=== PATIENT | female | born 1945 | race Hispanic/Latino ===

== ENCOUNTER 2016-08-09 12:51 | Inpatient (IN) | payer MEDICARE, OTHER ==
[2016-08-09 12:58] VITALS: BMI 23.6
--- NOTE | 2016-08-09 13:29 | ED PDOC ---
Arrival/HPI - General Chief Complaint: Shortness Of Breath Time Seen by Provider: 08/09/16 13:09 Historian: Patient - History of Present Illness Narrative History of Present Illness (Text): 08/09/16 13:28 71 year old female recently diagnosed with atrial fibrillation 2 days ago, started on Eliquis by PMD, presents to the emergency department with 1 week duration of worsening generalized weakness, lack of appetite and dyspnea on exertion. Denies chest pain. No other complaints at this time. Time/Duration: 1 week Symptom Onset: Gradual Symptom Course: Worsening Modifying Factors (Text): None Associated Symptoms (Text): None Past Medical History - Provider Review Nursing Documentation Reviewed: Yes - Cardiac Hx Cardiac Disorders: Yes Hx Cardiac Arrhythmia: Yes Hx Hypertension: Yes - Neurological Hx Neurological Disorder: No - HEENT Hx HEENT Disorder: No - Renal Hx Renal Disorder: No - Endocrine/Metabolic Hx Endocrine Disorders: Yes Hx Diabetes Mellitus Type 2: Yes - Hematological/Oncological Hx Blood Disorders: No - Integumentary Hx Dermatological Disorder: No - Musculoskeletal/Rheumatological Hx Musculoskeletal Disorders: Yes Hx Rheumatoid Arthritis: Yes - Gastrointestinal Hx Gastrointestinal Disorders: No - Genitourinary/Gynecological Hx Genitourinary Disorders: No - Psychiatric Hx Psychophysiologic Disorder: No Hx Substance Use: No Family/Social History - Physician Review Nursing Documentation Reviewed: Yes Family/Social History: Unknown Family HX Smoking Status: Never Smoked Hx Alcohol Use: No Hx Substance Use: No Allergies/Home Meds Allergies/Adverse Reactions: Allergies No Known Allergies Allergy (Verified 08/09/16 12:57) Home Medications: Home Meds Medication Instructions Recorded Confirmed Apixaban [Eliquis] 08/09/16 Furosemide [Lasix] 08/09/16 Metoprolol Tartrate [Lopressor] 08/09/16 [id number] [Cardizem] 08/09/16 Review of Systems - Physician Review All systems were reviewed & negative as marked: Yes Physical Exam - Physical Exam Narrative Physical Exam (Text): - Review of Systems Constitutional: Generalized weakness. absent: Fatigue, Weight Change, Fevers Eyes: Normal ENT: Normal Respiratory: Dyspnea on exertion absent: SOB, Cough, Sputum Cardiovascular: Normal absent: Chest pain, Palpitations, Syncope Gastrointestinal: Lack of appetite absent: Abdominal pain, Diarrhea, Nausea, Vomiting Genitourinary: Normal. absent: Dysuria, Frequency, Hematuria Musculoskeletal: Normal. absent: Arthralgias, Back Pain, Neck Pain Skin: Normal Neurological: Normal absent: Focal Weakness Endocrine: Normal Hemo/Lymphatic: Normal Psychiatric: Normal - Physical exam Patient appears age appropriate, speaking full sentences without difficulty - Systems Exam Head: Present: Atraumatic, Normocephalic Pupils: Present: PERRL Extraocular Muscles: Present: EOMI Conjunctiva: Present: Normal Mouth: Present: Moist Mucous Membranes Neck: Present: Normal Range of Motion. No: MIDLINE TENDERNESS, Paraspinal Tenderness Respiratory/Chest: Present: Clear to Auscultation, Good Air Exchange. No: Respiratory Distress, Accessory Muscle Use, Tachypneic Cardiovascular: Present: Irregularly irregular rhythm, Normal S1, S2, Peripheral Pulses Present. No: Murmurs Abdomen: Present: Normal Bowel Sounds, No: Tenderness, Peritoneal Signs, Rebound, Guarding, Distention Back: Present: Normal Inspection. No: Midline Tenderness, Paraspinal Tenderness Upper Extremity: Present: Normal Inspection. No: Cyanosis, Edema Lower Extremity: Present: Bilateral lower extremity swelling with +2 pitting edema Neurological: Present: GCS=15, Speech Normal, cranial nerves II through XII fully intact with no cerebellar abnormality, neuro-sensory fully intact. No focal neurological deficits. Skin: Present: Warm, Dry, Normal Color. No: Rashes Lymphatic: Present: OX3, NI, NC Psychiatric: Present: Alert, Oriented x 3, Normal Insight, Normal Concentration Vital Signs Reviewed: Yes Vital Signs Temp Pulse Resp BP Pulse Ox 08/09/16 16:05 105/57 L 08/09/16 15:52 97.2 F L 98 H 16 105/57 L 95 08/09/16 13:12 18 94 L 08/09/16 13:06 97.7 F 96 H 18 105/48 L 94 L Temperature: Afebrile Blood Pressure: Normal Pulse: Bradycardic Respiratory Rate: Normal Appearance: Positive for: Well-Appearing, Non-Toxic, Comfortable Pain Distress: None Mental Status: Positive for: Alert and Oriented X 3 Finger Stick Blood Glucose: 131 Medical Decision Making ED Course and Treatment: Impression: 71 year old female recently diagnosed with atrial fibrillation 2 days ago, started on Eliquis by PMD, presents to the emergency department with 1 week duration of worsening generalized weakness, lack of appetite and dyspnea on exertion. On physical exam, patient has irregularly irregular rhythm and bilateral lower extremity swelling with +2 pitting edema. Differential Diagnosis include but are not limited to: Pneumonia versus CHF Plan: -- EKG, Chest X-ray -- Aspirin -- Labs -- Reassess and disposition Progress Notes: EKG shows atrial fibrillation at [address]-segment depressions in lateral leads, no ST segment elevations. with no prior for comparison. Interpreted by me. 08/09/16 14:53 Chest x-ray shows cardiomegaly with bilateral pleural effusions, no pneumothorax. Vascular congestion present. Interpreted by me. CAT scan of the chest ordered for better evaluation. Antibiotics and Lasix ordered CMP pending 08/09/16 16:15 PROCEDURE: CT Chest without contrast HISTORY: PNA/effusions FINDINGS: LUNGS: Bibasilar consolidation adjacent to pleural effusions lesions. There is also consolidation in the right middle lobe and lingular segment of the left upper lobe with air bronchograms MEDIASTINUM: Unremarkable thoracic aorta. No aneurysm. Coronary artery calcifications. Mild cardiomegaly Main pulmonary artery unremarkable. No vascular congestion. No lymphadenopathy. PLEURA: Moderate size pleural effusions BONES: No fracture. No destructive lesion. UPPER ABDOMEN: Grossly unremarkable. OTHER FINDINGS: None. IMPRESSION: Bilateral pleural effusions with bibasilar consolidation. Infiltrates are also seen in the right middle lobe and lingular segment of the left upper lobe elevated troponin noted, pt denies any cp will order asa lasix ordered will hold ntg due to pt's BP PMD called, awaiting callback 08/09/16 16:[address] Sean Cuevas, accepted to his service to tele asked to consult Dr. Peterson for cardiology, paged pt in no resp distress at this time, denies cp/sob/casillas, aware of and agrees with plan - Lab Interpretations Lab Results: 08/09/16 13:35 08/09/16 15:25 Lab Results 08/09/16 15:25: Sodium 133, Potassium 4.4, Chloride 102, Carbon Dioxide 18 L, Anion Gap 17, BUN 61 H, Creatinine 2.0 H, Est GFR ( Amer) 30, Est GFR ( Non-Af Amer) 25, Random Glucose 125 H, Calcium 8.8, Total Bilirubin 2.3 H, AST 60 H, ALT 88 H, Alkaline Phosphatase 98, Lactate Dehydrogenase 1093 H, Total Creatine Kinase 47, Troponin I 0.18 H*, NT-Pro-B Natriuret Pep 43332 H, Total Protein 6.0, Albumin 3.4, Globulin 2.6, Albumin/Globulin Ratio 1.3 08/09/16 13:35: WBC 16.0 H, RBC 4.06, Hgb 13.4, Hct 41.5, MCV 102.2, MCH 33.0, MCHC 32.3, RDW 16.2 H, Plt Count 674 H, MPV 11.3 H, Gran % 92.4 H, Lymph % (Auto ) 2.2 L, Sevier % (Auto) 5.1, Eos % (Auto) 0.1 L, Baso % (Auto) 0.2, Gran # 14.79 H, Lymph # 0.4 L, Sevier # 0.8 H, Eos # 0.0, Baso # 0.04, PT 17.1 H, INR 1.58 H, APTT 32.9 H 08/09/16 13:05: POC Glucose (mg/dL) 131 H - RAD Interpretation Radiology Orders: 08/09/16 13:11 CHEST PORTABLE [RAD] Stat 08/09/16 14:45 CHEST W/O CONTRAST [CT] Stat - EKG Interpretation Interpreted by ED Physician: Yes Type: 12 lead EKG - Medication Orders Current Medication Orders: Discontinued Medications Aspirin (Aspirin Chewable) 162 mg PO STAT STA Stop: 08/09/16 13:11 Last Admin: 08/09/16 13:25 Dose: 162 MG Furosemide (Lasix) 40 mg IVP STAT STA Stop: 08/09/16 14:42 Last Admin: 08/09/16 16:05 Dose: 20 MG Comments: As per Dr. Call, only administer 20mg because of blood pressure. MAR Blood Pressure Document 08/09/16 16:05 ALA (Rec: 08/09/16 16:05 ALA [id number]) Blood Pressure Blood Pressure (100/60-150/90 mm Hg) 105/57 IVP Administration Document 08/09/16 16:05 ALA (Rec: 08/09/16 16:05 ALA [id number]) Charges for Administration # of IVP Administrations 1 Azithromycin (Zithromax 500mg In Ns) 250 mls @ 167 mls/hr IVPB STAT STA PRN Reason: Protocol Stop: 08/09/16 16:10 Ceftriaxone Sodium (Rocephin 1 Gram Ivpb) 100 mls @ 200 mls/hr IV STAT STA PRN Reason: Protocol Stop: 08/09/16 15:10 Last Admin: 08/09/16 15:54 Dose: 200 MLS/HR eMAR Start Stop Document 08/09/16 15:54 ALA (Rec: 08/09/16 15:54 ALA [id number]) Intravenous Solution Start Date 08/09/16 Start Time 15:54 End Date 08/09/16 End time 16:24 Total Infusion Time 30 - Scribe Statement The provider has reviewed the documentation as recorded by the Yung Cervantes Provider Scribe Attestation: All medical record entries made by the Ottoibe were at my direction and personally dictated by me. I have reviewed the chart and agree that the record accurately reflects my personal performance of the history, physical exam, medical decision making, and the department course for this patient. I have also personally directed, reviewed, and agree with the discharge instructions and disposition. Disposition/Present on Arrival - Present on Arrival Any Indicators Present on Arrival: No History of DVT/PE: No History of Uncontrolled Diabetes: No Urinary Catheter: No History of Decub. Ulcer: No History Surgical Site Infection Following: None - Disposition Have Diagnosis and Disposition been Completed?: Yes Diagnosis: CHF (congestive heart failure), Pneumonia Disposition: HOSPITALIZED Disposition Time: 16:25 Patient Plan: Admission Condition: FAIR Discharge Instructions (ExitCare): Heart Failure (ED)
--- NOTE | 2016-08-09 13:38 | RAD ---
HISTORY: cough COMPARISON: No prior. FINDINGS: LUNGS: Linear atelectasis at both lung bases. PLEURA: Moderate bilateral pleural effusion. CARDIOVASCULAR: Congestive change. OSSEOUS STRUCTURES: No significant abnormalities. VISUALIZED UPPER ABDOMEN: Normal. OTHER FINDINGS: None. IMPRESSION: Moderate bilateral pleural effusion with congestive change. Possible congestive heart failure. No definite infiltrate. Cannot rule out infiltrate at lung bases due to superimposed moderate pleural effusions.
[2016-08-09 13:41] LABS: ADD MANUAL DIFF? NO
[2016-08-09 13:54] LABS: BASO # 0.04 K/mm3 (0.0-2.0); BASO % 0.2 % (0.0-3.0); EOS % 0.1 % (1.5-5.0); GRAN # 14.79 (1.4-6.5); GRAN % 92.4 % (50.0-68.0); HEMATOCRIT 41.5 % (36.0-48.0); LYMPH # 0.4 (1.2-3.4); LYMPH % 2.2 % (22.0-35.0); MEAN CELL VOLUME 102.2 fL (80.0-105.0); MEAN CORPUSCULAR HGB CONC 32.3 g/dl (31.0-37.0); MEAN PLATELET VOLUME 11.3 fl (7.0-11.0); MONO # 0.8 (0.1-0.6); MONO % 5.1 % (1.0-6.0); PLATELET COUNT 674 10^3/uL (120.0-450.0); RED CELL DISTRIBUTION WIDTH 16.2 % (11.5-14.5)
[2016-08-09 14:01] LABS: INR 1.58 (0.93-1.08); PARTIAL THROMBOPLASTIN TIME 32.9 Seconds (23.7-30.8)
[2016-08-09] MEDS ORDERED: cefTRIAXone 1 gm 100 ML IV STA (14:41)
[2016-08-09] MEDS ORDERED: Azithromycin 500MG/NS 250ml 250 ML IVPB STA (14:41)
--- NOTE | 2016-08-09 15:34 | CT ---
PROCEDURE: CT Chest without contrast HISTORY: PNA/effusions COMPARISON: None. TECHNIQUE: Contiguous axial images were obtained through the chest without intravenous contrast enhancement. Sagittal and coronal reconstructions were performed. Radiation dose (DLP): 343 mGy-cm. FINDINGS: LUNGS: Bibasilar consolidation adjacent to pleural effusions lesions. There is also consolidation in the right middle lobe and lingular segment of the left upper lobe with air bronchograms MEDIASTINUM: Unremarkable thoracic aorta. No aneurysm. Coronary artery calcifications. Mild cardiomegaly Main pulmonary artery unremarkable. No vascular congestion. No lymphadenopathy. PLEURA: Moderate size pleural effusions BONES: No fracture. No destructive lesion. UPPER ABDOMEN: Grossly unremarkable. OTHER FINDINGS: None. IMPRESSION: Bilateral pleural effusions with bibasilar consolidation. Infiltrates are also seen in the right middle lobe and lingular segment of the left upper lobe
[2016-08-09 15:45] LABS: ALB/GLOB RATIO 1.3 (1.1-1.8); BILIRUBIN,TOTAL 2.3 mg/dL (0.2-1.3); CALCIUM 8.8 mg/dL (8.4-10.5); POTASSIUM 4.4 mmol/L (3.6-5.0)
[2016-08-09 16:03] LABS: TROPONIN I 0.18 ng/mL
--- NOTE | 2016-08-09 18:23 | CARD ---
APPROVED REPORT EKG Measurement Heart [id number] <Conclusion> Atrial fibrillation Right bundle branch block Anteroseptal infarct, age undetermined T wave abnormality, consider inferolateral ischemia or digitalis effect Abnormal ECG
[2016-08-09] MEDS: Insulin Reg-LOW-Coverage SC SCH (21:31)
[2016-08-09] MEDS ORDERED: Influenza Vaccine 45 MCG/0.5 ml IM ONE (22:04)
[2016-08-09] MEDS ORDERED: Pneumococcal 23-Valent Vaccine IM ONE (22:04)
[2016-08-10 06:42] LABS: HEMATOCRIT 37.7 % (36.0-48.0); MEAN CELL VOLUME 100.5 fL (80.0-105.0); MEAN CORPUSCULAR HEMOGLOBIN 32.5 pg (25.0-35.0); MEAN CORPUSCULAR HGB CONC 32.4 g/dl (31.0-37.0); MEAN PLATELET VOLUME 11.2 fl (7.0-11.0); PLATELET COUNT 533 10^3/uL (120.0-450.0); RED CELL DISTRIBUTION WIDTH 16.2 % (11.5-14.5); WHITE BLOOD COUNT 10.9 10^3/ul (4.5-11.0)
[2016-08-10 06:48] LABS: ADD MANUAL DIFF? YES
[2016-08-10 06:57] LABS: CALCIUM 8.5 mg/dL (8.4-10.5); POTASSIUM 4.1 mmol/L (3.6-5.0)
[2016-08-10] MEDS: Potassium Chloride 10 mEq ER Tab PO SCH (08:09)
[2016-08-10] MEDS: Insulin Reg-LOW-Coverage SC SCH ×4 (08:10→22:34)
[2016-08-10 09:38] LABS: HYPOCHROMIA SLIGHT; LARGE PLATELETS PRESENT; NEUTROPHIL 90 % (50.0-70.0); PLATELET ESTIMATE HIGH (NORMAL); POIKILOCYTOSIS 2+
[2016-08-10 09:42] LABS: ANISOCYTOSIS 2+; OVALOCYTES 1+; TEAR DROP CELLS SLIGHT
[2016-08-10] MEDS: diltiaZEM 240 mg/24 Hours CD Cap PO SCH ×2 (09:42→18:33)
[2016-08-10 09:43] LABS: BURR CELLS 1+
[2016-08-10] MEDS: cefTRIAXone 1 gm 100 ML IV SCH (09:44)
[2016-08-10] MEDS: Heparin25000 units/250ml 1/2NS 250 ML IV PRN (09:57)
--- NOTE | 2016-08-10 10:22 | CON ---
DATE: 08/10/2016 REASON FOR CONSULTATION: Atrial fibrillation, rapid ventricular response, pleural effusions, rule out pneumonia. HISTORY OF PRESENT ILLNESS: This is a 71-year-old woman who was found to have atrial fibrillation a couple days prior to admission. She was seen in the office by Dr. Cordero. She complained of shortness of breath, weakness and not feeling well. Her symptoms worsened and she came to the Emergency Room yesterday and was admitted to telemetry where she is resting in bed today with atrial fibrillation with a moderate to rapid ventricular response. Her chest x- ray showed bilateral pleural effusions and a CT scan of the chest was abnormal showing bilateral effusions and infiltrates. There is no prior history of cardiac disease. She denies chest pain, PND, syncope, presyncope, lightheadedness, dizziness, vertigo, abdominal pain, nausea , vomiting, diarrhea, constipation, melena, fever, chills, rigors, sweats, hemoptysis. PAST MEDICAL HISTORY: Notable for hypertension, diabetes and rheumatoid arthritis. There is no history of rheumatic fever, myocardial infarction, angina, congestive heart failure, stroke, TIA or gout. MEDICATIONS: At the time of admission included Cardizem, Eliquis, Lasix, Lopressor, weekly methotrexate. ALLERGIES: There are no known allergies. She is intolerent of metoprolol. SOCIAL HISTORY: She lives at home. She does not smoke cigarettes. She does not drink alcohol. FAMILY HISTORY: Noncontributory. REVIEW OF SYSTEMS: Ten point review of systems otherwise unremarkable except as noted above. PHYSICAL EXAMINATION: GENERAL: She is a well-developed woman sitting in bed on telemetry in no acute distress. VITAL SIGNS: Notable for atrial fibrillation at 100 beats per minute. She is afebrile. Blood pressure 116/60, respirations 17-19, O2 sat 94%-99% on room air. HEENT: Reveals no neck vein distention, thyromegaly, or carotid bruits. Mucous membranes are moist. Conjunctivae are pink. NECK: Supple. CHEST: Lung millard diminished breath sounds at the bases. HEART: Revealed an irregular rhythm, normal first and second heart sounds. ABDOMEN: Soft, bowel sounds present. No mass, organomegaly, tenderness, rebound, guarding, CVA tenderness or palpable abdominal aortic aneurysm. EXTREMITIES: Revealed no cyanosis, clubbing, or edema. NEUROLOGIC: She is awake, alert and oriented. SKIN: Warm and dry. No rash or cellulitis. PSYCHIATRIC: Normal as to mood and affect. LABORATORY AND IMAGING: EKG demonstrates atrial fibrillation, rapid ventricular response, right bundle branch block, ST-T wave changes. Chest x- ray reveals moderate bilateral pleural effusion with congestive changes. No definite infiltrate. A CT scan of the chest reveals bilateral pleural effusions with bibasilar consolidation. Infiltrates are seen in the right middle lobe and lingular segment of the left upper lobe. White count 16,000, repeat 10,900, hemoglobin and hematocrit are unremarkable. Platelet count is elevated at 533,000. PT 17.1, INR 1.58. PTT 32.9. Electrolytes notable for BUN of 65, creatinine is 2.0, repeat 2.1. LFTs are elevated. CK is 47, troponin is 0.18 and 0.20. BNP is 28,500. IMPRESSION: The patient is a 71-year-old woman with a history of rheumatoid arthritis, found to have atrial fibrillation at the time of increasing shortness of breath and weakness for several days to a week prior to admission. She has bilateral pleural effusions, renal insufficiency with a mild troponin elevation and BNP of 28,500. PLAN: At this time, she is on telemetry. An echocardiogram as ordered. She is getting p.o. diltiazem. I will add sotalol. I will check a TSH and lipid panel. We will trend her troponins. She got aspirin. She is on Eliquis. Given renal insufficiency I will switch this to IV heparin for now. She is getting IV Lasix and Rocephin. She is getting azithromycin. We will monitor I' s and O's. We will check stool for occult blood. Once stabilized, a nuclear stress test will be recommended. She should have a pulmonary evaluation. She should be cultured. I will follow along with you and make additional recommendations based on her clinical course. Javy Peterson MD cc: [id number] TT: 08/10/2016 10:21:50 Confirmation # [id number] Dictation # [id number] eriberto SANTILLAN
--- NOTE | 2016-08-10 10:23 | HP ---
CHIEF COMPLAINT: Leg edema, shortness of breath, palpitations, irregular heartbeat. HISTORY OF PRESENT ILLNESS: This is a 71-year-old woman I have known for many years with a history of hypertension, diabetes and severe rheumatoid arthritis, who came to the office on Saturday, 2 days ago. For the past 2 weeks, the patient has been noticing worsening shortness of breath, feeling of a rapid heart rate. When she checked her blood pressure at home, blood pressure was normal to slightly elevated, but the home monitor reported an irregular heartbeat. She thought about contacting me, did some research on the Internet, had her read about congestive heart failure, was concerned about the swelling ankles, did not want to listen to the advice of her daughter suggesting she come to the office until Saturday when she finally gave in. She came in and told me she did not want to go to the hospital. On physical exam, she had edema up to the groin. She was not dyspneic on exertion or with speech. Her heart rate was irregular and tachycardic at 136 beats per minute and irregular. Her presenting symptom when she came to the office was of GI complaints, nausea and diarrhea. She did not forward the complaints about the shortness of breath or swollen ankles until examined and it was discovered on exam. We spoke about hospital stay. The patient was resistant and so she was started on Lasix 40 mg p.o. twice a day. Her usual dose of Cardizem was doubled from 120 to 240 mg. She was started on Eliquis. Metoprolol 25 mg b.i.d. was added and she was to follow up in the office in less than 48 hours and go to the Emergency Room if there was any worsening of her condition. Today , for her scheduled appointment, she did not come to the office, but rather on their way to the office, decided to go to the Emergency Room instead. And so, in the Emergency Room, she was evaluated, found to be in atrial fibrillation with a controlled rate at about 100. She was in failure with volume overload. Bilateral pleural effusions and leg edema were noted. The leg edema was actually better than noted a few days ago and the new finding was of cardiomegaly on chest x-ray and CT scan. CT scan also raised the question of an infiltrate, but there were no infectious symptoms so I would tend to think this is more effusion and CHF related rather than infectious etiology of the pneumonia, but I will cover her with antibiotics anyway as you will hear later. PAST MEDICAL HISTORY: Significant for hypertension since 1994, diabetes since 1959, rheumatoid arthritis diagnosed in 1994 for which she has seen several rheumatologists and for the last 5 years or so, she declined rheumatological followup and continues on methotrexate with a positive rheumatoid factor, normal sed rate and no further deterioration of her already advanced rheumatoid arthritis with quite remarkable findings in the hands. PAST SURGICAL HISTORY: Significant for cardiac catheterization in 1992, parapharyngeal neck tumor removed in 1992 and a right eye cataract surgery in 2006. ALLERGIES: SHE IS ALLERGIC TO CODEINE WHICH CAUSES AND UPSET STOMACH AND SOMETIME IN THE PAST SHE WAS TRIED ON TOPROL WHICH CAUSED fatigue. She does not smoke and never did. Does not drink alcohol. Drinks approximately 3 cups of coffee per day. Colonoscopy, never had a colonoscopy, does not want one. She had a mammogram in 2003 and perhaps again another one since that time. She has not had a stress test. She does get the flu shot. Her Pneumovax vaccines were given in 1998, 2005 and 2011. FAMILY HISTORY: Her mother at age 46 of myocardial infarction. Her father at age 35 of appendicitis. She is the youngest of 2 sibs. She has 1 sister who passed at age 58 of lung cancer. She is with 1 daughter and 2 grandchildren. She is a homemaker. Her problem list and diagnosis list at the office includes diabetes, rheumatoid arthritis and hypertension. REVIEW OF SYSTEMS: Otherwise, unremarkable except for the items mentioned above. PHYSICAL EXAMINATION: GENERAL: The patient was seen in the Emergency Room, slot #7, this evening, quite comfortable, on a stretcher, in no acute distress. She is able to speak clearly without dyspnea. She has no chest pain and denies ever having any chest pain or diaphoresis. VITAL SIGNS: Heart rate is about 100 on the overhead monitor, blood pressure is in the 90/60 range. HEAD AND NECK: Unremarkable. Conjunctivae are pink. Mucous membranes are moist. Neck is supple, without masses. Thyroid is not palpable. CHEST: Clear at the apices. There is dullness at the right and left base with bilateral crackles above that. HEART: Irregular and borderline tachycardic at around 100. ABDOMEN: Soft and nontender. EXTREMITIES: Show soft +3 edema of both the right and left leg to above the knee, mid thigh area and this is actually an improvement from 2 days ago. LABORATORIES: Review show her BUN and creatinine to be elevated in the 65 and 2.1 range. This is a bit of an increase from her baseline BUN and creatinine of about 1.1, but I will need to check my office records for exact details. Chest x-ray shows congestive changes with large bilateral effusions. CT scan of the chest confirms the effusion, raises the question of infiltrate, but again , if we are to believe that 90% of the diagnosis is made by history, there does not appear to be any history of infectious symptoms, she is afebrile, her white count was elevated on admission, but this can certainly be related to stress reaction. On the other hand, I would certainly err on the side of caution and treat her with antibiotics for this until clear with diuresis. IMPRESSION: 1. New onset atrial fibrillation with rapid ventricular response of about 2 weeks' duration at home, resulting in anasarca, volume overload, congestive heart failure, bilateral pleural effusions. 2. Questionable infiltrate on chest x-ray, CT scan, which may be infectious, but more likely related to congestion in etiology. 3. History of hypertension. 4. History of diabetes. 5. History of rheumatoid arthritis. 6. Newfound elevations in the BUN and creatinine, probably related to the state of failure. PLAN: The patient has already been anticoagulated on p.o. Eliquis. Therefore, I will continue the dose, however, reduce the dose in view of her elevated BUN and creatinine to 2.5 mg b.i.d. Continue her increased dose of Cardizem at 240 mg daily. Increase her Lasix to 40 mg IV b.i.d. Add atorvastatin, use with Rocephin for the suspicion of pneumonia, but hopefully we will be able to discontinue that in a few days. I will add a low dose ADIN inhibitor in view of the failure and cardiomegaly seen on chest x-ray. I will have some Xanax and Tylenol available on an as needed basis. We will ask cardiology, Dr. Peterson and Dr. Gibbs, to see the patient as she will need a cardiac workup in the future. In the view of time and since it is night, I will order an echocardiogram for tomorrow so that hopefully we can get this done before the weekend. If the patient diureses nicely, in view of her intense yearning to be home and not hospitalized, I will try to discharge her as soon as possible, perhaps as early as Saturday morning and continue outpatient followup and workup as an outpatient. Almaguer factors will be diuresis and resolution of the effusions, infiltrates and peripheral edema, control of the rate. Of note, the patient reported that the metoprolol that I gave her at low dose in addition to the boost in the dose of Cardizem, helped the rate. However, the metoprolol made her feel extremely fatigued as well as restless and agitated and not her usual self. She says she is extremely sensitive to this type of medicine as she had problems with Toprol once before making her "not her usual self". Therefore, I will make her allergy profile to be SENSITIVE TO METOPROLOL Clyde Cordero MD cc: [id number] TT: 08/10/2016 10:22:16 en [id number]
--- NOTE | 2016-08-10 13:13 | RAD ---
HISTORY: f/u on effusions/chf COMPARISON: 08/09/2016 TECHNIQUE: Chest PA and lateral FINDINGS: LUNGS: No active pulmonary disease. PLEURA: Small bilateral pleural effusions CARDIOVASCULAR: Normal. OSSEOUS STRUCTURES: No significant abnormalities. VISUALIZED UPPER ABDOMEN: Normal. OTHER FINDINGS: None. IMPRESSION: Small to moderate bilateral pleural effusions
--- NOTE | 2016-08-10 14:16 | CARD ---
APPROVED REPORT EKG Measurement Heart [id number] <Conclusion> Atrial fibrillation with rapid ventricular response Right bundle branch block Anteroseptal infarct, age undetermined Abnormal ECG
[2016-08-11 07:41] LABS: CALCIUM 8.3 mg/dL (8.4-10.5); POTASSIUM 4.2 mmol/L (3.6-5.0)
[2016-08-11 07:51] LABS: TROPONIN I 0.08 ng/mL
[2016-08-11] MEDS: Insulin Reg-LOW-Coverage SC SCH ×4 (07:57→22:56)
[2016-08-11] MEDS: Potassium Chloride 10 mEq ER Tab PO SCH (07:57)
--- NOTE | 2016-08-11 08:50 | CP.PCM.PN ---
Subjective - Date & Time of Evaluation Date of Evaluation: 08/11/16 Time of Evaluation: 08:00 - Subjective Subjective: Stable on 2R. Breathing a bit better, edema better. No CP. Upset re roommate. Good urine output reported by nurse to be 1700 cc. V/S Stable. AF with mod. VR. PE: Lungs: diminished BS at bases Cor.: irreg, S1S2 Abd.: soft Ext. + edema Neuro.; alert Echo done: prelim: Severe LVD. See full report. Labs: PTT = 52.1, Cr.= 1.9, trop=0.08, TSH NL. Objective - Vital Signs/Intake and Output Vital Signs (last 24 hours): Temp Pulse Resp BP Pulse Ox 97.8 F 102 H 18 99/60 L 92 L 08/11/16 06:00 08/11/16 06:00 08/11/16 06:00 08/11/16 06:00 08/11/16 06:00 Intake and Output: 08/11/16 08/11/16 06:59 18:59 Intake Total 420 Output Total 200 Balance 220 - Medications Medications: Current Medications Acetaminophen (Tylenol 325mg Tab) 650 mg PO Q4H PRN PRN Reason: Pain, Mild (1-3) Alprazolam (Xanax) 0.25 mg PO Q6H PRN PRN Reason: Anxiety Stop: 08/16/16 20:34 Atorvastatin Calcium (Lipitor) 10 mg PO DIN [facility] Last Admin: 08/10/16 17:21 Dose: 10 mg Diltiazem HCl (Cardizem Cd) 240 mg PO DAILY [facility] Last Admin: 08/10/16 18:33 Dose: 240 mg Furosemide (Lasix) 40 mg IVP Q12 [facility] Last Admin: 08/10/16 22:34 Dose: Not Given Ceftriaxone Sodium (Rocephin 1 Gram Ivpb) 100 mls @ 100 mls/hr IV DAILY [facility] PRN Reason: Protocol Last Admin: 08/10/16 09:44 Dose: 100 mls/hr Heparin Sodium/Sodium Chloride (Heparin 87922 Units/250ml 1/2 Normal Saline) 250 mls @ 11.349 mls/hr IV .Q22H2M PRN; Protocol; 18 UNITS/KG/HR PRN Reason: ADJUST RATE PER PROTOCOL Last Titration: 08/10/16 17:30 Dose: 13.16 units/kg/hr Insulin Human Regular (Humulin R Low) 0 units SC ACHS [facility] PRN Reason: Protocol Last Admin: 08/11/16 07:57 Dose: 1 units Lisinopril (Zestril) 2.5 mg PO DAILY [facility] Potassium Chloride (Klor-Con 10) 10 meq PO BRK [facility] Last Admin: 08/11/16 07:57 Dose: 10 meq Sotalol HCl (Betapace) 40 mg PO BID [facility] Last Admin: 08/10/16 17:21 Dose: 40 mg - Labs Labs: 08/10/16 05:30 08/11/16 06:45 PT 17.1 Seconds (9.9-11.8) H 08/09/16 13:35 INR 1.58 (0.93-1.08) H 08/09/16 13:35 APTT 52.1 Seconds (23.7-30.8) H 08/11/16 02:30 Assessment and Plan - Assessment and Plan (Free Text) Plan: Assessment: SOB/Weakness/Edema AF, new Bilat. Pl. effusions/Possible infiltrate Renal Insufficiency HBP Diabetes RA Cataract Surgery Plan: review echo > prelim severe LVD c/w CMP. Continue IV Lasix and IV heparin and PO sotolol Check ECG today Monitor labs, I/O sats., renal fx. Probably cath sometime next week Will follow.
--- NOTE | 2016-08-11 09:54 | CARD ---
APPROVED REPORT EXAM: Two-dimensional and M-mode echocardiogram with Doppler and color Doppler. Other Information Quality : AverageRhythm : INDICATION Atrial Fibrillation Congestive Heart Failure 2D DIMENSIONS Left Atrium (2D)4.3 (1.6-4.0cm)IVSd1.1 (0.7-1.1cm) LVDd5.2 (3.9-5.9cm)PWd1.0 (0.7-1.1cm) LVDs4.7 (2.5-4.0cm)FS (%) 10.4 % LVEF (%)22.0 (>50%) M-Mode DIMENSIONS Aortic Root2.80 (2.2-3.7cm)Aortic Cusp Exc.1.20 (1.5-2.0cm) Aortic Valve AoV Peak Qjchxiry663.0cm/Edward Peak GR.6mmHg Mitral Valve E/A ratio0.0 TDI E/Lateral E'0.0E/Medial E'0.0 Tricuspid Valve TR Peak [id number]/sRAP [id number] Peak Gr.30mmHg [id number] LEFT VENTRICLE The left ventricle is normal size. The left ventricle is normal size. There is normal left ventricular wall thickness. Left ventricle systolic function is severely impaired. The Ejection Fraction is 20-25%. There is severe global hypokinesis. RIGHT VENTRICLE The right ventricle is mildly dilated. ATRIA The left atrium is mildly dilated. The right atrium is mildly dilated. The interatrial septum is intact with no evidence for an atrial septal defect. AORTIC VALVE The aortic valve is mildly calcified. MITRAL VALVE The mitral valve is normal in structure. Mitral regurgitation is moderate. TRICUSPID VALVE The tricuspid valve is normal in structure. There is moderate to severe tricuspid regurgitation. There is mild-moderate pulmonary hypertension. GREAT VESSELS The aortic root is normal in size. PERICARDIAL EFFUSION There are large pleural effusions. Numerous echo densities seen within the pleural fluid. There is no pericardial effusion. <Conclusion> The left ventricle is normal size. There is normal left ventricular wall thickness. Left ventricle systolic function is severely impaired. The Ejection Fraction is 20-25%. There is severe global hypokinesis. The aortic valve is mildly calcified. Aortic sclerosis. Mitral regurgitation is moderate. There is moderate to severe tricuspid regurgitation. There is mild-moderate pulmonary hypertension. There are large pleural effusions. Numerous echo densities seen within the pleural fluid.
[2016-08-11] MEDS: cefTRIAXone 1 gm 100 ML IV SCH (10:44)
[2016-08-11] MEDS: diltiaZEM 240 mg/24 Hours CD Cap PO SCH (10:44)
--- NOTE | 2016-08-11 12:39 | CARD ---
APPROVED REPORT EKG Measurement Heart [id number] <Conclusion> Atrial fibrillation Right bundle branch block Septal infarct, age undetermined T wave abnormality, consider lateral ischemia or digitalis effect Abnormal ECG
[2016-08-11] MEDS: Heparin25000 units/250ml 1/2NS 250 ML IV PRN (16:35)
--- NOTE | 2016-08-12 07:49 | CP.PCM.PN ---
Subjective - Date & Time of Evaluation Date of Evaluation: 08/12/16 Time of Evaluation: 08:00 - Subjective Subjective: Stable on 2R. Breathing a bit better, edema better. No CP. Good urine output reported by nurse to be 2620 cc. V/S Stable. AF with mod. VR. PE: Lungs: diminished BS at bases Cor.: irreg, S1S2 Abd.: soft Ext. + edema Neuro.; alert Echo done: Severe LVD, EF ~ 20-25%, Moderate MR, Mod/Sev. TR, Mild/Mod PH. + Pl. effusions. Labs: PTT = 52.1, Cr.= 1.9, trop=0.08, TSH NL. EC/1: AF at 95 BPM, RBBB, STTW chages. QTc= 502 Objective - Vital Signs/Intake and Output Vital Signs (last 24 hours): Temp Pulse Resp BP Pulse Ox 97.5 F L 83 20 94/52 L 96 08/12/16 06:00 08/12/16 06:00 08/12/16 06:00 08/12/16 06:00 08/12/16 06:00 Intake and Output: 08/12/16 08/12/16 06:59 18:59 Intake Total 348 Output Total 1200 Balance -852 - Medications Medications: Current Medications Acetaminophen (Tylenol 325mg Tab) 650 mg PO Q4H PRN PRN Reason: Pain, Mild (1-3) Alprazolam (Xanax) 0.25 mg PO Q6H PRN PRN Reason: Anxiety Stop: 08/16/16 20:34 Atorvastatin Calcium (Lipitor) 10 mg PO DIN [facility] Last Admin: 08/11/16 17:10 Dose: 10 mg Diltiazem HCl (Cardizem Cd) 240 mg PO DAILY [facility] Last Admin: 08/11/16 10:44 Dose: 240 mg Furosemide (Lasix) 40 mg IVP Q12 [facility] Last Admin: 08/11/16 22:12 Dose: 40 mg Ceftriaxone Sodium (Rocephin 1 Gram Ivpb) 100 mls @ 100 mls/hr IV DAILY [facility] PRN Reason: Protocol Last Admin: 08/11/16 10:44 Dose: 100 mls/hr Heparin Sodium/Sodium Chloride (Heparin 14043 Units/250ml 1/2 Normal Saline) 250 mls @ 11.349 mls/hr IV .Q22H2M PRN; Protocol; 18 UNITS/KG/HR PRN Reason: ADJUST RATE PER PROTOCOL Last Admin: 08/11/16 16:35 Dose: 8.3 mls/hr Insulin Human Regular (Humulin R Low) 0 units SC ACHS [facility] PRN Reason: Protocol Last Admin: 08/11/16 22:56 Dose: Not Given Lisinopril (Zestril) 2.5 mg PO DAILY [facility] Potassium Chloride (Klor-Con 10) 10 meq PO BRK [facility] Last Admin: 08/11/16 07:57 Dose: 10 meq Sotalol HCl (Betapace) 40 mg PO BID [facility] Last Admin: 08/11/16 17:10 Dose: 40 mg - Labs Labs: 08/10/16 05:30 08/11/16 06:45 PT 17.1 Seconds (9.9-11.8) H 08/09/16 13:35 INR 1.58 (0.93-1.08) H 08/09/16 13:35 APTT 72.5 Seconds (23.7-30.8) H* 08/11/16 08:15 Assessment and Plan - Assessment and Plan (Free Text) Plan: Assessment: SOB/Weakness/Edema Severe LVD with Mod. MR, Mod/Sev. TR, Mild/Mod. PH on echo AF, new Bilat. Pl. effusions/Possible infiltrate Renal Insufficiency HBP Diabetes RA Cataract Surgery Plan: Continue IV Lasix and IV heparin and PO sotolol PO metolazone 2.5 today Monitor labs, I/O sats., renal fx. OOB to chair as prakash. Probably cath sometime next week Will follow.
[2016-08-12] MEDS: Insulin Reg-LOW-Coverage SC SCH ×3 (08:03→16:59)
[2016-08-12 08:29] LABS: CALCIUM 8.7 mg/dL (8.4-10.5); MAGNESIUM 2.2 mg/dL (1.7-2.2); POTASSIUM 3.8 mmol/L (3.6-5.0)
--- NOTE | 2016-08-12 08:40 | CARD ---
APPROVED REPORT EKG Measurement Heart [id number] <Conclusion> Atrial fibrillation Right bundle branch block Septal infarct, age undetermined Abnormal ECG
[2016-08-12] MEDS ORDERED: metOLazone 2.5 MG TAB PO ONE (09:00)
[2016-08-12] MEDS: Potassium Chloride 10 mEq ER Tab PO SCH (09:51)
[2016-08-12] MEDS: cefTRIAXone 1 gm 100 ML IV SCH (09:52)
[2016-08-12] MEDS: diltiaZEM 240 mg/24 Hours CD Cap PO SCH (12:16)
[2016-08-12] MEDS ORDERED: metOLazone 2.5 MG TAB PO SCH (14:00)
[2016-08-12] MEDS ORDERED: Menthol/Methyl Salicylate Ointment(1 oz) TOP PRN ×2 (15:16→15:19)
[2016-08-12] MEDS: Heparin25000 units/250ml 1/2NS 250 ML IV PRN (22:54)
--- NOTE | 2016-08-13 06:38 | CP.PCM.PN ---
Subjective - Date & Time of Evaluation Date of Evaluation: 08/13/16 Time of Evaluation: 06:34 - Subjective Subjective: S:Nurse tells that patient had 6 beats of VTACH on monitor strip. Patient is asymptomatic. No chest pain, sob. Medical record reviewed. O: Last Vital Signs 3 Temp 97.5 F L 08/13/16 05:56 Pulse 71 08/13/16 05:56 Resp 18 08/13/16 05:56 BP 105/49 L 08/13/16 05:56 Pulse Ox 91 L 08/13/16 05:56 Awake, alert. LUNGS:Normal breathing pattern. A/P Non sustained VTACH. Elevated troponin. Renal insufficiency. Observation. Objective - Vital Signs/Intake and Output Vital Signs (last 24 hours): Temp Pulse Resp BP Pulse Ox 97.5 F L 71 18 105/49 L 91 L 08/13/16 05:56 08/13/16 05:56 08/13/16 05:56 08/13/16 05:56 08/13/16 05:56 Intake and Output: 08/12/16 08/13/16 18:59 06:59 Intake Total 99 Balance 99 - Medications Medications: Current Medications Acetaminophen (Tylenol 325mg Tab) 650 mg PO Q4H PRN PRN Reason: Pain, Mild (1-3) Alprazolam (Xanax) 0.25 mg PO Q6H PRN PRN Reason: Anxiety Stop: 08/16/16 20:34 Atorvastatin Calcium (Lipitor) 10 mg PO DIN [facility] Last Admin: 08/12/16 17:00 Dose: 10 mg Camphor/Menthol (Bengay) 0 gm TOP QID PRN PRN Reason: Pain, Mild (1-3) Last Admin: 08/12/16 16:59 Dose: 1 applic Diltiazem HCl (Cardizem Cd) 240 mg PO DAILY [facility] Last Admin: 08/12/16 12:16 Dose: 240 mg Furosemide (Lasix) 40 mg IVP Q12 [facility] Last Admin: 08/12/16 21:40 Dose: 40 mg Ceftriaxone Sodium (Rocephin 1 Gram Ivpb) 100 mls @ 100 mls/hr IV DAILY [facility] PRN Reason: Protocol Last Admin: 08/12/16 09:52 Dose: 100 mls/hr Heparin Sodium/Sodium Chloride (Heparin 13154 Units/250ml 1/2 Normal Saline) 250 mls @ 11.349 mls/hr IV .Q22H2M PRN; Protocol; 18 UNITS/KG/HR PRN Reason: ADJUST RATE PER PROTOCOL Last Admin: 08/12/16 22:54 Dose: 8.297 mls/hr Insulin Human Regular (Humulin R Low) 0 units SC ACHS [facility] PRN Reason: Protocol Last Admin: 08/12/16 16:59 Dose: 3 units Lisinopril (Zestril) 2.5 mg PO DAILY [facility] Metolazone (Zaroxolyn) 2.5 mg PO DAILY [facility] Last Admin: 08/12/16 14:23 Dose: Not Given Potassium Chloride (Klor-Con 10) 10 meq PO BRK [facility] Last Admin: 08/12/16 09:51 Dose: 10 meq Sotalol HCl (Betapace) 40 mg PO BID [facility] Last Admin: 08/12/16 16:59 Dose: 40 mg - Labs Labs: 08/10/16 05:30 08/12/16 07:00 PT 17.1 Seconds (9.9-11.8) H 08/09/16 13:35 INR 1.58 (0.93-1.08) H 08/09/16 13:35 APTT 64.1 Seconds (23.7-30.8) H 08/12/16 07:00
[2016-08-13 07:09] LABS: CALCIUM 8.6 mg/dL (8.4-10.5); POTASSIUM 3.7 mmol/L (3.6-5.0)
--- NOTE | 2016-08-13 08:27 | CP.PCM.PN ---
Subjective - Date & Time of Evaluation Date of Evaluation: 08/13/16 Time of Evaluation: 08:00 - Subjective Subjective: Stable on 2R. Breathing a bit better, edema better. No CP. Good urine output reported by nurse to be 3100 cc based on output sheet (but not recorded in EHR) . Irritated with hospital routine. Was oob to recliner chair "all day" yesterday. V/S Stable. AF with mod. VR. PE: Lungs: diminished BS at bases Cor.: irreg, S1S2 Abd.: soft Ext. + edema Neuro.; alert Echo done: Severe LVD, EF ~ 20-25%, Moderate MR, Mod/Sev. TR, Mild/Mod PH. + Pl. effusions. Labs noted. Cr. 1.6, K+= 3.7, etc. EC/2: AF at 76 BPM, RBBB, STTW changes. QTc= 470 Objective - Vital Signs/Intake and Output Vital Signs (last 24 hours): Temp Pulse Resp BP Pulse Ox 97.5 F L 71 18 105/49 L 91 L 08/13/16 05:56 08/13/16 05:56 08/13/16 05:56 08/13/16 05:56 08/13/16 05:56 Intake and Output: 08/13/16 08/13/16 06:59 18:59 Intake Total 99 Balance 99 - Medications Medications: Current Medications Acetaminophen (Tylenol 325mg Tab) 650 mg PO Q4H PRN PRN Reason: Pain, Mild (1-3) Alprazolam (Xanax) 0.25 mg PO Q6H PRN PRN Reason: Anxiety Stop: 08/16/16 20:34 Atorvastatin Calcium (Lipitor) 10 mg PO DIN [facility] Last Admin: 08/12/16 17:00 Dose: 10 mg Camphor/Menthol (Bengay) 0 gm TOP QID PRN PRN Reason: Pain, Mild (1-3) Last Admin: 08/12/16 16:59 Dose: 1 applic Diltiazem HCl (Cardizem Cd) 240 mg PO DAILY [facility] Last Admin: 08/12/16 12:16 Dose: 240 mg Furosemide (Lasix) 40 mg IVP Q12 [facility] Last Admin: 08/12/16 21:40 Dose: 40 mg Ceftriaxone Sodium (Rocephin 1 Gram Ivpb) 100 mls @ 100 mls/hr IV DAILY [facility] PRN Reason: Protocol Last Admin: 08/12/16 09:52 Dose: 100 mls/hr Heparin Sodium/Sodium Chloride (Heparin 20427 Units/250ml 1/2 Normal Saline) 250 mls @ 11.349 mls/hr IV .Q22H2M PRN; Protocol; 18 UNITS/KG/HR PRN Reason: ADJUST RATE PER PROTOCOL Last Admin: 08/12/16 22:54 Dose: 8.297 mls/hr Insulin Human Regular (Humulin R Low) 0 units SC ACHS [facility] PRN Reason: Protocol Last Admin: 08/12/16 16:59 Dose: 3 units Lisinopril (Zestril) 2.5 mg PO DAILY [facility] Metolazone (Zaroxolyn) 2.5 mg PO DAILY [facility] Last Admin: 08/12/16 14:23 Dose: Not Given Potassium Chloride (Klor-Con 10) 10 meq PO BRK [facility] Last Admin: 08/12/16 09:51 Dose: 10 meq Sotalol HCl (Betapace) 40 mg PO BID [facility] Last Admin: 08/12/16 16:59 Dose: 40 mg - Labs Labs: 08/10/16 05:30 08/13/16 06:30 PT 17.1 Seconds (9.9-11.8) H 08/09/16 13:35 INR 1.58 (0.93-1.08) H 08/09/16 13:35 APTT 64.1 Seconds (23.7-30.8) H 08/12/16 07:00 Assessment and Plan - Assessment and Plan (Free Text) Plan: Assessment: SOB/Weakness/Edema Severe LVD with Mod. MR, Mod/Sev. TR, Mild/Mod. PH on echo AF, new Bilat. Pl. effusions/Possible infiltrate Renal Insufficiency HBP Diabetes RA Cataract Surgery Plan: Continue IV Lasix and IV heparin and PO sotolol PO metolazone 2.5 today Increase PO KCL Monitor labs, I/O sats., renal fx. OOB to chair as prakash./PT Probably cath sometime this week: ? Saturday Will follow.
[2016-08-13] MEDS: Insulin Reg-LOW-Coverage SC SCH ×5 (08:41→22:01)
[2016-08-13] MEDS: Potassium Chloride 20 mEq ER Tab PO SCH ×2 (10:59→17:04)
[2016-08-13] MEDS: diltiaZEM 240 mg/24 Hours CD Cap PO SCH (11:00)
[2016-08-13] MEDS: metOLazone 2.5 MG TAB PO SCH ×2 (11:00→22:01)
[2016-08-13] MEDS: cefTRIAXone 1 gm 100 ML IV SCH (11:01)
[2016-08-13] MEDS ORDERED: Insulin Human NPH 1 UNITS/0.01 ML SC ONE (21:35)
[2016-08-13] MEDS: Potassium Chloride 10 mEq ER Tab PO SCH (22:47)
[2016-08-14] MEDS: Heparin25000 units/250ml 1/2NS 250 ML IV PRN (08:11)
[2016-08-14] MEDS: Insulin Reg-LOW-Coverage SC SCH ×4 (08:14→21:12)
[2016-08-14] MEDS: Insulin Human NPH 1 UNITS/0.01 ML SC SCH (08:15)
[2016-08-14 08:19] LABS: CALCIUM 8.7 mg/dL (8.4-10.5); MAGNESIUM 1.9 mg/dL (1.7-2.2); POTASSIUM 3.7 mmol/L (3.6-5.0)
--- NOTE | 2016-08-14 08:44 | CP.PCM.PN ---
Subjective - Date & Time of Evaluation Date of Evaluation: 08/14/16 Time of Evaluation: 08:00 - Subjective Subjective: Stable on 2R. No CP or SOB. Edema better. V/S Stable. AF with mod. VR. PE: Lungs: diminished BS at bases Cor.: irreg, S1S2 Abd.: soft Ext. + edema Neuro.; alert Urine out: 2700 cc's (by written flow sheet, not EHR) Echo done: Severe LVD, EF ~ 20-25%, Moderate MR, Mod/Sev. TR, Mild/Mod PH. + Pl. effusions. Labs noted. Cr. 1.5, K+= 3.7, PTT= 71, etc. EC/2: AF at 76 BPM, RBBB, STTW changes. QTc= 470 Objective - Vital Signs/Intake and Output Vital Signs (last 24 hours): Temp Pulse Resp BP Pulse Ox 97.5 F L 107 H 18 114/50 L 94 L 08/14/16 06:00 08/14/16 06:00 08/14/16 06:00 08/14/16 06:00 08/14/16 06:00 Intake and Output: 08/14/16 08/14/16 06:59 18:59 Intake Total 494 Output Total 1500 Balance -1006 - Medications Medications: Current Medications Acetaminophen (Tylenol 325mg Tab) 650 mg PO Q4H PRN PRN Reason: Pain, Mild (1-3) Alprazolam (Xanax) 0.25 mg PO Q6H PRN PRN Reason: Anxiety Stop: 08/16/16 20:34 Atorvastatin Calcium (Lipitor) 10 mg PO DIN [facility] Last Admin: 08/13/16 16:57 Dose: 10 mg Camphor/Menthol (Bengay) 0 gm TOP QID PRN PRN Reason: Pain, Mild (1-3) Last Admin: 08/12/16 16:59 Dose: 1 applic Diltiazem HCl (Cardizem Cd) 240 mg PO DAILY [facility] Last Admin: 08/13/16 11:00 Dose: 240 mg Furosemide (Lasix) 40 mg IVP Q12 [facility] Last Admin: 08/13/16 21:52 Dose: 40 mg Ceftriaxone Sodium (Rocephin 1 Gram Ivpb) 100 mls @ 100 mls/hr IV DAILY [facility] PRN Reason: Protocol Last Admin: 08/13/16 11:01 Dose: 100 mls/hr Heparin Sodium/Sodium Chloride (Heparin 70577 Units/250ml 1/2 Normal Saline) 250 mls @ 11.349 mls/hr IV .Q22H2M PRN; Protocol; 18 UNITS/KG/HR PRN Reason: ADJUST RATE PER PROTOCOL Last Admin: 08/14/16 08:11 Dose: 8.297 mls/hr Insulin Human NPH (Humulin N) 22 units SC 0730 [facility] Last Admin: 08/14/16 08:15 Dose: 22 units Insulin Human Regular (Humulin R Low) 0 units SC ACHS [facility] PRN Reason: Protocol Last Admin: 08/14/16 08:14 Dose: 4 units Lisinopril (Zestril) 2.5 mg PO DAILY [facility] Metolazone (Zaroxolyn) 2.5 mg PO DAILY [facility] Last Admin: 08/13/16 22:01 Dose: Not Given Metolazone (Zaroxolyn) 2.5 mg PO ONCE ONE Stop: 08/14/16 09:01 Last Admin: 08/14/16 08:12 Dose: 2.5 mg Potassium Chloride (K-Dur 20 Meq Er Tab) 20 meq PO BID [facility] Last Admin: 08/13/16 17:04 Dose: 20 meq Sotalol HCl (Betapace) 40 mg PO BID [facility] Last Admin: 08/13/16 17:04 Dose: 40 mg - Labs Labs: 08/10/16 05:30 08/14/16 07:00 PT 17.1 Seconds (9.9-11.8) H 08/09/16 13:35 INR 1.58 (0.93-1.08) H 08/09/16 13:35 APTT 71.1 Seconds (23.7-30.8) H* 08/14/16 07:00 Assessment and Plan - Assessment and Plan (Free Text) Plan: Assessment: SOB/Weakness/Edema Severe LVD with Mod. MR, Mod/Sev. TR, Mild/Mod. PH on echo AF, new Bilat. Pl. effusions/Possible infiltrate Renal Insufficiency HBP Diabetes RA Cataract Surgery Plan: Continue IV Lasix and IV heparin and PO sotolol PO metolazone 2.5 today CXR today. Monitor labs, I/O sats., renal fx. OOB to chair as prakash./PT Cath sometime this week: ? Saturday (pending stabilization of renal function). Will follow.
[2016-08-14] MEDS ORDERED: metOLazone 2.5 MG TAB PO ONE (09:00)
[2016-08-14] MEDS: metOLazone 2.5 MG TAB PO SCH (09:58)
[2016-08-14] MEDS: diltiaZEM 240 mg/24 Hours CD Cap PO SCH (10:10)
[2016-08-14] MEDS: Potassium Chloride 20 mEq ER Tab PO SCH ×2 (10:11→18:34)
[2016-08-14] MEDS: cefTRIAXone 1 gm 100 ML IV SCH (10:12)
--- NOTE | 2016-08-14 15:02 | RAD ---
HISTORY: F/U [address] effusions COMPARISON: 08/10/2016 TECHNIQUE: Chest PA and lateral FINDINGS: LUNGS: No active pulmonary disease. PLEURA: Moderate size bilateral pleural effusions unchanged CARDIOVASCULAR: Normal. OSSEOUS STRUCTURES: No significant abnormalities. VISUALIZED UPPER ABDOMEN: Normal. OTHER FINDINGS: None. IMPRESSION: Moderate size bilateral pleural effusions unchanged
[2016-08-14] MEDS ORDERED: Magnesium Hydroxide Susp 30 ml UD PO ONE (20:06)
[2016-08-14] MEDS: Bisacodyl 5mg EC Tab PO SCH (21:12)
[2016-08-15 07:00] LABS: HEMATOCRIT 36.8 % (36.0-48.0); MEAN CELL VOLUME 98.7 fL (80.0-105.0); MEAN CORPUSCULAR HEMOGLOBIN 31.9 pg (25.0-35.0); MEAN CORPUSCULAR HGB CONC 32.3 g/dl (31.0-37.0); MEAN PLATELET VOLUME 12.2 fl (7.0-11.0); RED CELL DISTRIBUTION WIDTH 15.9 % (11.5-14.5); WHITE BLOOD COUNT 8.1 10^3/ul (4.5-11.0)
[2016-08-15 07:11] LABS: ALB/GLOB RATIO 1.2 (1.1-1.8); CALCIUM 8.7 mg/dL (8.4-10.5); POTASSIUM 4.7 mmol/L (3.6-5.0); TOTAL PROTEIN 5.8 g/dL (5.8-8.3)
[2016-08-15] MEDS: Insulin Human NPH 1 UNITS/0.01 ML SC SCH (08:02)
[2016-08-15] MEDS: Insulin Reg-LOW-Coverage SC SCH ×4 (08:03→21:43)
[2016-08-15] MEDS: diltiaZEM 240 mg/24 Hours CD Cap PO SCH (10:07)
[2016-08-15] MEDS: cefTRIAXone 1 gm 100 ML IV SCH (10:07)
[2016-08-15] MEDS: metOLazone 2.5 MG TAB PO SCH (10:07)
[2016-08-15] MEDS: Potassium Chloride 20 mEq ER Tab PO SCH ×2 (10:08→17:32)
--- NOTE | 2016-08-15 10:26 | PN ---
DATE: 08/15/2016 SUBJECTIVE: The patient is seen sitting in bed, on telemetry. She is feeling somewhat better. Her dyspnea has improved. Edema is improved as well. She remains in atrial fibrillation with a moderate ventricular response. CURRENT MEDICATIONS: Include IV heparin, sotalol 40 mg b.i.d., diltiazem 240 mg daily, insulin NPH 2 2 units in the morning, Lasix 40 mg b.i.d., potassium 20 mEq b.i.d., Lipitor 10 mg daily, Rocephin, Z aroxolyn 2.5 mg daily. OBJECTIVE: GENERAL: She is a middle-aged woman, appears comfortable at the present time. VITAL SIGNS: Her blood pressure is 100/54 with a pulse of 100-110 with atrial fibrillation, respirat ions are 16. She is afebrile. HEENT: No JVD. CHEST: Diminished breath sounds at the bases. HEART: PMI displaced laterally with an irregularly irregular rhythm. Soft tones are noted. ABDOMEN: Soft, nontender, normoactive bowel sounds. EXTREMITIES: 1+ leg edema is present. Sodium 131, potassium 4.7, BUN and creatinine are 16 and 1.5, glucose is 248. PTT 93. Intake and output report is 490 and 1500. By report, she has lost 11 pounds since admission. Chest x-ray reveals improved, but persistent, bilateral pleural effusions. IMPRESSION: 1. Atrial fibrillation, apparently of recent onset. 2. Severe left ventricular dysfunction and probable dilated cardiomyopathy. 3. Moderate mitral regurgitation. 4. Moderately severe tricuspid regurgitation. 5. Bilateral pleural effusions, clinically improving. 6. Renal insufficiency, improved as well. 7. History of hypertension and diabetes. RECOMMENDATIONS: Her current medications will be continued for now. Her Betapace dose will be incre ased for rate control as well as attempts at conversion to sinus rhythm. Continued monitoring of her renal function is advisable. An eventual cardiac catheterization would be appropriate, but this [place] s not need to be performed urgently. Further diuresis and stabilization of her renal function would be appropriate first. This can be planned electively as an outpatient within the next 1-2 weeks. In the interim, heparin will be discontinued and oral Eliquis will be initiated. All the above was dis cussed in detail with the patient and her . This was also discussed with the nursing staff an d nurse practitioner. We will continue to follow along and make further recommendations as aly montgomery. Angel Gibbs MD cc: [id number] TT: 08/15/2016 10:25:59 Confirmation # [id number] Dictation # [id number]
[2016-08-15] MEDS: Bisacodyl 5mg EC Tab PO SCH (21:24)
[2016-08-16 07:18] LABS: ALB/GLOB RATIO 1.2 (1.1-1.8); BILIRUBIN,TOTAL 1.8 mg/dL (0.2-1.3); CALCIUM 8.8 mg/dL (8.4-10.5); POTASSIUM 3.8 mmol/L (3.6-5.0); TOTAL PROTEIN 5.7 g/dL (5.8-8.3)
[2016-08-16] MEDS: Insulin Reg-LOW-Coverage SC SCH ×4 (07:57→22:32)
--- NOTE | 2016-08-16 08:39 | CP.PCM.PN ---
Subjective - Date & Time of Evaluation Date of Evaluation: 08/16/16 Time of Evaluation: 08:00 - Subjective Subjective: Stable on 2R. No CP or SOB. Edema better. V/S Stable. AF with mod. VR. PE: Lungs: diminished BS at bases Cor.: irreg, S1S2 Abd.: soft Ext. + edema Neuro.; alert Wt. = 129 lbs. Urine out: 1700 cc first shift (second shift not recorded) Echo done: Severe LVD, EF ~ 20-25%, Moderate MR, Mod/Sev. TR, Mild/Mod PH. + Pl. effusions. Labs noted. Cr. 1.4, K+= 3.8 EC/2: AF at 76 BPM, RBBB, STTW changes. QTc= 470 CXR 08/14: Mod Roger. Pl. Eff., no change Objective - Vital Signs/Intake and Output Vital Signs (last 24 hours): Temp Pulse Resp BP Pulse Ox 98 F 87 20 95/57 L 97 08/16/16 05:22 08/16/16 05:22 08/16/16 05:22 08/16/16 05:22 08/16/16 05:22 - Medications Medications: Current Medications Acetaminophen (Tylenol 325mg Tab) 650 mg PO Q4H PRN PRN Reason: Pain, Mild (1-3) Alprazolam (Xanax) 0.25 mg PO Q6H PRN PRN Reason: Anxiety Stop: 08/16/16 20:34 Apixaban (Eliquis) 5 mg PO BID [facility] PRN Reason: Protocol Last Admin: 08/15/16 18:45 Dose: 5 mg Atorvastatin Calcium (Lipitor) 10 mg PO DIN [facility] Last Admin: 08/15/16 17:32 Dose: 10 mg Bisacodyl (Dulcolax) 5 mg PO HS [facility] Last Admin: 08/15/16 21:24 Dose: 5 mg Camphor/Menthol (Bengay) 0 gm TOP QID PRN PRN Reason: Pain, Mild (1-3) Last Admin: 08/12/16 16:59 Dose: 1 applic Diltiazem HCl (Cardizem Cd) 240 mg PO DAILY [facility] Last Admin: 08/15/16 10:07 Dose: 240 mg Furosemide (Lasix) 40 mg IVP DAILY [facility] Insulin Human NPH (Humulin N) 22 units SC 0730 [facility] Last Admin: 08/15/16 08:02 Dose: 22 units Insulin Human Regular (Humulin R Low) 0 units SC ACHS [facility] PRN Reason: Protocol Last Admin: 08/16/16 07:57 Dose: Not Given Lactobacillus Acidophilus (Bacid Acidophilus) 1 cap PO BID [facility] Lisinopril (Zestril) 2.5 mg PO DAILY [facility] Metolazone (Zaroxolyn) 2.5 mg PO DAILY [facility] Last Admin: 08/15/16 10:07 Dose: 2.5 mg Potassium Chloride (K-Dur 20 Meq Er Tab) 20 meq PO BID [facility] Last Admin: 08/15/16 17:32 Dose: 20 meq Sotalol HCl (Betapace) 80 mg PO BID [facility] Last Admin: 08/15/16 18:44 Dose: 80 mg - Labs Labs: 08/15/16 07:00 08/16/16 05:30 PT 17.1 Seconds (9.9-11.8) H 08/09/16 13:35 INR 1.58 (0.93-1.08) H 08/09/16 13:35 APTT 92.6 Seconds (23.7-30.8) H* 08/15/16 06:00 Assessment and Plan - Assessment and Plan (Free Text) Plan: OB/Weakness/Edema Severe LVD with Mod. MR, Mod/Sev. TR, Mild/Mod. PH on echo AF, new Bilat. Pl. effusions/Possible infiltrate Renal Insufficiency HBP Diabetes RA Cataract Surgery Plan: Continue IV Lasix (reduce to QD) and Elliquis and PO sotolol PO metolazone 2.5 today Monitor labs, I/O, sats., renal fx. ECG/QT today. OOB to chair as prakash./PT Will follow.
[2016-08-16] MEDS: Insulin Human NPH 1 UNITS/0.01 ML SC SCH (08:44)
--- NOTE | 2016-08-16 08:56 | PN ---
DATE: 08/15/2016 The patient is a 71-year-old female with a past medical history positive for rheumatoid arthritis, hy pertension and insulin-dependent diabetes who was admitted to the [facility] on 08/09 with new onset atrial fibrillation and congestive heart failure. On admission, she had troponi ns of 0.18-0.2. Thyroid stimulating hormone was normal. EKG showed atrial fibrillation with right b undle-branch block and anteroseptal infarct, age indeterminate. She had bilateral effusions and flora estive heart failure on chest x-ray. During the hospital stay, she was followed by Dr. Peterson and Dr Eduardo Gibbs, her cardiologists. She was treated with diuretics to maintain a negative fluid balance. She underwent echocardiography, which showed an ejection fraction of 20%-25% with moderate tricuspid regurgitation and pulmonary hypertension. The possibility of a coronary catheterization had been ra ised and was possibly pending for some time this week. PHYSICAL EXAMINATION: GENERAL: When seen today, the patient is awake, alert, and oriented. She had been receiving insulin for her diabetes. Her spirits are good. LUNGS: Have decreased breath sounds at the bases. HEART: Irregularly irregular at around 100 beats per minute. VITAL SIGNS: This morning, show the blood pressure to be 101/54, heart rate of 103 and she is afebri le. ABDOMEN: Soft and nontender. EXTREMITIES: Free of cyanosis, clubbing or edema. Morning laboratories show that the white blood cell count is 8.1, hemoglobin and hematocrit are 11.9 and 36.8. Sodium is 131, potassium is 4.7, BUN is 62, creatinine is 1.5, which is just about baselin e for this patient. Her glucose was elevated at 248. So, at this point, the patient appears to be hemodynamically stable. There is a possibility of a cor onary catheterization on Saturday versus discharge to home and followup as an outpatient. Case to be d iscussed with cardiology. Tj Cordero MD cc: [id number] TT: 08/16/2016 08:55:11 Confirmation # [id number] Dictation # [id number] en
[2016-08-16] MEDS: diltiaZEM 240 mg/24 Hours CD Cap PO SCH (10:43)
[2016-08-16] MEDS: Potassium Chloride 20 mEq ER Tab PO SCH ×2 (10:43→18:04)
[2016-08-16] MEDS: Lactobacillus Acidophilus 500 MU Cap PO SCH ×2 (10:43→18:03)
[2016-08-16] MEDS: metOLazone 2.5 MG TAB PO SCH (13:29)
--- NOTE | 2016-08-16 17:52 | CARD ---
APPROVED REPORT EKG Measurement Heart [id number] <Conclusion> Atrial fibrillation Right bundle branch block Septal infarct, age undetermined Abnormal ECG
[2016-08-16] MEDS: Bisacodyl 5mg EC Tab PO SCH (22:13)
[2016-08-17 06:48] VITALS: O2SAT 91
[2016-08-17 07:41] LABS: ADD MANUAL DIFF? NO
[2016-08-17 07:48] LABS: BASO # 0.03 K/mm3 (0.0-2.0); BASO % 0.3 % (0.0-3.0); EOS # 0.1 (0.0-0.7); EOS % 1.1 % (1.5-5.0); GRAN # 8.77 (1.4-6.5); GRAN % 86.9 % (50.0-68.0); HEMATOCRIT 36.1 % (36.0-48.0); LYMPH # 0.4 (1.2-3.4); LYMPH % 3.6 % (22.0-35.0); MEAN CELL VOLUME 99.7 fL (80.0-105.0); MEAN CORPUSCULAR HEMOGLOBIN 31.8 pg (25.0-35.0); MEAN CORPUSCULAR HGB CONC 31.9 g/dl (31.0-37.0); MEAN PLATELET VOLUME 11.7 fl (7.0-11.0); MONO # 0.8 (0.1-0.6); MONO % 8.1 % (1.0-6.0); PLATELET COUNT 229 10^3/uL (120.0-450.0); RED CELL DISTRIBUTION WIDTH 16.5 % (11.5-14.5); WHITE BLOOD COUNT 10.1 10^3/ul (4.5-11.0)
[2016-08-17] MEDS: Insulin Human NPH 1 UNITS/0.01 ML SC SCH ×2 (07:55→08:23)
[2016-08-17] MEDS: Insulin Reg-LOW-Coverage SC SCH ×2 (07:56→12:30)
--- NOTE | 2016-08-17 08:08 | PN ---
DATE: 08/16/2016 The patient was seen this morning in room 269, bed 2, sitting in chair , comfortable with her at the bedside. She is awake, alert, clear, and in good spirits. She is resting comfortably in the chair next to the bed with her feet elevated and support stockings in place. I last saw her 1 week ago today on the date of admission. She has since been seen daily by cardiology and by my partner, Dr. Tj Cordero, during her aggressive diuresis. LABORATORY DATA: Show electrolytes to be stable. BUN ____ at baseline at 1.5. Chest x-ray shows marked improvement in failure. Prior noted questionable infiltrate has resolved. This was mostly _CHF. Her smaller bilateral pleural effusions remain. PHYSICAL EXAMINATION: HEAD AND NECK: Unremarkable. Conjunctivae are pink. Mucous membranes are moist. NECK: Supple without masses. LUNGS: Clear, but with dullness at the bases. HEART: Irregular, nontachycardic. EXTREMITIES: Show trace edema with PADMINI stockings in place. IMPRESSION: 1. Atrial fibrillation of onset approximately 2-3 weeks prior to presentation to the office. 2. Status post 1 week hospitalization with diuresis. Heart rate is controlled , remains in atrial fibrillation. 3. Dilated cardiomyopathy with low ejection fraction while in this high volume overloaded state. 4. Diabetes. 5. History of hypertension. 6. Severe rheumatoid arthritis. PLAN: We will talk with interventional radiologist, Dr. Laurent Savage, today about the possibility of thoracentesis to alleviate the bilateral effusions as the patient has only yesterday been able to lie flat without feeling short of breath. Continue IV diuresis for now until improved clinically. Cardiology notes appreciated regarding the further workup on an outpatient basis after she has reached a euvolemic state. Later in the day, I spoke with Dr. Laurent Savage who feels these effusions are improving and will continue to improve with current course of treatment and therefore would take a conservative approach on the thoracentesis to allow for further diuresis. We will continue diuresis an additional day or 2. Hopefully , patient will be ready to discharge over the weekend. I will order morning labs to be drawn. Clyde Cordero MD cc: [id number] TT: 08/16/2016 18:59:52 Confirmation # [id number] Dictation # [id number] jn TYRELL
[2016-08-17 08:16] LABS: CALCIUM 8.7 mg/dL (8.4-10.5); MAGNESIUM 2.1 mg/dL (1.7-2.2); POTASSIUM 3.9 mmol/L (3.6-5.0)
--- NOTE | 2016-08-17 08:31 | CP.PCM.PN ---
Subjective - Date & Time of Evaluation Date of Evaluation: 08/17/16 Time of Evaluation: 08:00 - Subjective Subjective: Stable on 2R. No CP or SOB. Edema better. V/S Stable. AF with mod. VR. PE: Lungs: diminished BS at bases Cor.: irreg, S1S2 Abd.: soft Ext. + edema Neuro.; alert Wt. = 122 lbs. Urine out: 3800 cc. Echo done: Severe LVD, EF ~ 20-25%, Moderate MR, Mod/Sev. TR, Mild/Mod PH. + Pl. effusions. Labs noted: Na+= 128, K+= 3.9, Cr.= 1.4 EC/6: AF at 76 BPM, RBBB, STTW changes. QTc= 433 CXR 08/14: Mod Roger. Pl. Eff., no change Objective - Vital Signs/Intake and Output Vital Signs (last 24 hours): Temp Pulse Resp BP Pulse Ox 98.8 F 72 20 93/58 L 91 L 08/17/16 06:00 08/17/16 06:00 08/17/16 06:00 08/17/16 06:00 08/17/16 06:00 Intake and Output: 08/17/16 08/17/16 06:59 18:59 Intake Total 420 Output Total 4300 Balance -3880 - Medications Medications: Current Medications Acetaminophen (Tylenol 325mg Tab) 650 mg PO Q4H PRN PRN Reason: Pain, Mild (1-3) Apixaban (Eliquis) 5 mg PO BID [facility] PRN Reason: Protocol Last Admin: 08/16/16 18:03 Dose: 5 mg Atorvastatin Calcium (Lipitor) 10 mg PO DIN [facility] Last Admin: 08/16/16 18:04 Dose: 10 mg Bisacodyl (Dulcolax) 5 mg PO HS [facility] Last Admin: 08/16/16 22:13 Dose: 5 mg Camphor/Menthol (Bengay) 0 gm TOP QID PRN PRN Reason: Pain, Mild (1-3) Last Admin: 08/12/16 16:59 Dose: 1 applic Diltiazem HCl (Cardizem Cd) 240 mg PO DAILY [facility] Last Admin: 08/16/16 10:43 Dose: 240 mg Furosemide (Lasix) 40 mg IVP DAILY [facility] Last Admin: 08/16/16 10:44 Dose: 40 mg Insulin Human NPH (Humulin N) 22 units SC 0730 [facility] Last Admin: 08/17/16 08:23 Dose: 22 units Insulin Human Regular (Humulin R Low) 0 units SC ACHS [facility] PRN Reason: Protocol Last Admin: 08/17/16 07:56 Dose: Not Given Lactobacillus Acidophilus (Bacid Acidophilus) 1 cap PO BID [facility] Last Admin: 08/16/16 18:03 Dose: 1 cap Lisinopril (Zestril) 2.5 mg PO DAILY [facility] Last Admin: 08/16/16 17:59 Dose: 2.5 mg Potassium Chloride (K-Dur 20 Meq Er Tab) 20 meq PO BID [facility] Last Admin: 08/16/16 18:04 Dose: 20 meq Sotalol HCl (Betapace) 80 mg PO BID [facility] Last Admin: 08/16/16 18:03 Dose: 80 mg - Labs Labs: 08/17/16 07:30 08/17/16 07:30 PT 17.1 Seconds (9.9-11.8) H 08/09/16 13:35 INR 1.58 (0.93-1.08) H 08/09/16 13:35 APTT 92.6 Seconds (23.7-30.8) H* 08/15/16 06:00 Assessment and Plan - Assessment and Plan (Free Text) Plan: SOB/Weakness/Edema Severe LVD with Mod. MR, Mod/Sev. TR, Mild/Mod. PH on echo AF, new Bilat. Pl. effusions/Possible infiltrate Renal Insufficiency HBP Diabetes RA Cataract Surgery Plan: Continue IV Lasix and Elliquis and PO sotolol No metolazone today Monitor labs, I/O, sats., renal fx., wts., etc. OOB as prakash./PT Will follow.
[2016-08-17] MEDS: diltiaZEM 240 mg/24 Hours CD Cap PO SCH (09:47)
[2016-08-17] MEDS: Potassium Chloride 20 mEq ER Tab PO SCH (09:52)
[2016-08-17] MEDS: Lactobacillus Acidophilus 500 MU Cap PO SCH (09:53)
[2016-08-17 13:27] VITALS: RESP 19; TEMP 97
[2016-08-17 16:14] VITALS: BP 102/50; PULSE 88
--- NOTE | 2016-08-19 09:40 | DS ---
This is a 71-year-old woman I have known for many years with diabetes and severe rheumatoid arthritis and hypertension who was seen in the office on Saturday after 2 weeks of worsening swelling in the an kles for which she had her investigating congestive heart failure symptoms on the Internet. She is checking her blood pressure at home and noted that the machine was recording and irregular pul se, but it was only when she became a bit short of breath that she came to the office insisting on no t wanting to come to the hospital. Her medications were adjusted as outpatient in that her Cardizem was doubled from 120 to 240. Lasix was added, and she was scheduled for followup in [address] to the office for that followup visit, she opted to come to the Emergency Room because of worse alex shortness of breath. In the Emergency Room, her rate was controlled in the high 90s, but she was still in failure with +3 to +4 edema of the lower extremities up to the groin. She was admitted to the medical floor, seen by cardiologists, Dr. Peterson and Dr. Gibbs, diuresed with IV Lasix. Echocardiogram was surprising to show a large dilated cardiomyopathy. She remained in atrial fibrill ation with controlled rate. Her chest x-ray showed the lungs to improve, but large bilateral pleural effusions persisted. After 1 week of aggressive diuresis, I requested consultation from Dr. Laurent Savage for thoracentesis and dr weir of pleural effusions. He felt it would improve with continued time. So a more conservative a pproach was taken. The patient was maintained on Eliquis through the course of stay, as she had been started on it as an outpatient. Sotalol was added, as she had an ADVERSE REACTION WITH EXTREME FATIGUE ON METOPROLOL. So she was improved clinically, able to lay flat. Her leg edema has decreased to only +1. She was c omfortable and anxious for discharge to home, and so was discharged on Saturday for 08/17/16. Medication s were reviewed. A list was given. Later in the day, I spoke with the patient's daughter to go over her medicines again, and make clarifications. She will be followed up in the office on Saturday or and by telephone over the weekend. FINAL DISCHARGE DIAGNOSES: 1. New onset atrial fibrillation with rapid ventricular response, treated initially as an outpatient , but requiring hospitalization for aggressive diuresis. 2. Volume-overload, congestive heart failure due to atrial fibrillation as mentioned above. 3. Diabetes. 4. Hypertension. 5. Rheumatoid arthritis with severe ulnar deviation and contraction of the fingers and subluxation a t the wrist. Clyde Cordero MD cc: [id number] TT: 08/19/2016 09:40:23 jn
== END 2016-08-17 17:03 | disposition home or self-care (01) | DRG 292 ==
LOC: ED 12:51 → ERH 16:25 → 2RNO 20:23
PROVIDERS: ADMIT Internal Medicine; ATTEND Internal Medicine
DX: I11.0 Hypertensive heart disease with heart failure (principal); I47.2 Ventricular tachycardia; I50.1 Left ventricular failure, unspecified; I27.2 Other secondary pulmonary hypertension; I42.0 Dilated cardiomyopathy; I08.1 Rheumatic disorders of both mitral and tricuspid valves; I48.91 Unspecified atrial fibrillation; E11.9 Type 2 diabetes mellitus without complications; I45.10 Unspecified right bundle-branch block; N28.9 Disorder of kidney and ureter, unspecified; M06.9 Rheumatoid arthritis, unspecified; M24.3 Pathological dislocation of joint, not elsewhere classified; M24.549 Contracture, unspecified hand; Z79.4 Long term (current) use of insulin

== ENCOUNTER 2016-09-19 06:23 | Day surgery (SDC) | payer MEDICARE, OTHER ==
[2016-09-14 09:04] VITALS: BMI 23.0
[2016-09-19 07:15] LABS: INR 1.06 (0.93-1.08); PARTIAL THROMBOPLASTIN TIME 28.6 Seconds (23.7-30.8)
[2016-09-19] MEDS ORDERED: Lidocaine 2% Inj (20ml) ONE (08:47)
[2016-09-19] MEDS ORDERED: Iodixanol 320 MG/ML 200 ML BOTTLE IV ONE (08:48)
[2016-09-19] MEDS ORDERED: Iodixanol 320 MG/ML 100 ML BOTTLE IV ONE (08:48)
[2016-09-19] MEDS ORDERED: Midazolam 2 MG/2 ML VIAL ONE (09:21)
[2016-09-19] MEDS ORDERED: Sodium Chloride 0.9% 1,000 ML IV SCH (10:45)
--- NOTE | 2016-09-19 11:10 | CARDCATH ---
PROCEDURE DATE: 09/19/2016 HISTORY OF PRESENT ILLNESS: This is a 71-year-old woman with recent congestive heart failure and osiris dence of LV dysfunction who is advised cardiac catheterization. INDICATION: Congestive heart failure, probable coronary artery disease. PROCEDURES: 1. Selective left and right coronary angiography. 2. Right and left heart catheterization. 3. Right femoral arteriography. 4. Angio-Seal deployment. 5. Left ventriculography. FINDINGS: HEMODYNAMICS: The right heart pressures were as follows: The RA pressure is 3, the RV pressure was 40/3 with a PA pressure of 40/18. Pulmonary capillary wedge pressure was 15 with a V-wave to 25 note d. Cardiac output was 3.65 L per minute by thermodilution method. CORONARY ANATOMY: 1. The left anterior descending artery and the left circumflex artery had separate ostia. Both vess els were moderately calcified. The LAD had mild proximal irregularities and multiple 60-70% lesions in the mid portion of the vessel. The diagonal branch had evidence of mild to moderate diffuse disea se. 2. The left circumflex artery had a 40% lesion proximally and a 40% lesion in its mid portion. The first obtuse marginal branch was of fairly large size and had a 60% lesion in its mid portion. Colla terals were noted to the distal RCA from the circumflex system. 3. The right coronary artery was dominant and was occluded in its mid portion which had the aforemen tioned left to right collaterals filling distal vessel. LEFT VENTRICULOGRAPHY: A hand injection was performed in the left ventricle revealing evidence of se chilango distal anterolateral and apical hypokinesis with an overall ejection fraction of 40%. There was no aortic valve gradient on catheter pullback. Mitral regurgitation was not assessed. RIGHT FEMORAL ARTERIOGRAPHY: Right femoral arteriogram revealed no evidence of significant disease a nd appropriate level of arterial puncture. The puncture site was then closed with deployment of an A ngio-Seal device. CONCLUSION: 1. Moderate diffuse left anterior descending disease. 2. Moderate circumflex system disease. 3. Occluded right coronary artery with collaterals. 4. Mildly reduced left ventricular systolic function. RECOMMENDATIONS: At this time, medical therapy appears most appropriate for her coronary disease. A fterload reduction of her LV dysfunction is advised. Continued risk factor control was advised. Angel Gibbs MD cc:Clyde Cordero MD [id number] TT: 09/19/2016 11:09:32 tn
[2016-09-19 11:24] VITALS: TEMP 97.7
[2016-09-19 13:53] VITALS: RESP 18; O2SAT 98
[2016-09-19 14:42] VITALS: BP 117/45; PULSE 55
== END 2016-09-19 15:35 | disposition home or self-care (01) ==
LOC: CATH 06:23
PROVIDERS: ATTEND Internal Medicine Cardiovascular Disease
DX: I25.10 Atherosclerotic heart disease of native coronary artery without angina pectoris (principal); I11.0 Hypertensive heart disease with heart failure; I50.9 Heart failure, unspecified; E11.8 Type 2 diabetes mellitus with unspecified complications; Z79.4 Long term (current) use of insulin
CPT/HCPCS: 36415; 82948; 85610; 85730; 86850; 86900; 93460; 99152; C1760; C1769; C1894; C2629; J1644; J2250; J3010; J7040 ×2